=== PATIENT | male | born 1960 | race Caucasian/White ===

== ENCOUNTER 2024-02-03 13:05 | Day surgery (SDC) | payer OTHER, SELFPAY ==
--- NOTE | 2024-02-03 | PATH_ITS ---
[facility] Accession Number: [id number] No. of containers..01 Tissue . 01 Material submitted: . rectum - RECTAL POLYP . 01 Diagnosis: RECTAL POLYP: Hyperplastic polyp. [facility] 02/05/2024 1448 Local . 01 Electronically signed: . Sreedhar Cortés MD, Pathologist NPI- [id number] . 01 Gross description: . Received in formalin with two patient identifiers and rectal polyp, is a single fields soft tissue fragment 0.4 cm in greatest dimension. Submitted in cassette A1. ([id number]) /HILARIA 02/05/20248 Local . 01 Pathologist provided ICD-10: K63.5 . 01 CPT . 840828 Specimen Comment: A courtesy copy of this report has been sent to [phone] Performed at: [address] [facility] [id number] MD Sreedhar Cortés MD Phone: [phone]
[2024-02-03] MEDS: LACTATED RINGERS 1,000 ML 42 ML IV (13:40)
[2024-02-03 13:45] VITALS: BP 134/84; PULSE 73; RESP 18; TEMP 36.5; O2SAT 94
--- NOTE | 2024-02-03 14:13 | P.HP_ITS ---
History of Present Illness History of Present Illness Date Patient Seen: 02/03/24 Time Patient Seen: 14:13 Chief complaint: [facility] [place] Narrative: 63-year-old man here for screening colonoscopy. Personal history of colonic polyps. Family history of colon cancer in his mother. Last colonoscopy approximately 5 years ago. No abdominal concerns today. [facility] Social History Smoking Status: Never smoker alcohol intake: current Meds Home Medications and Allergies Home Medications Medication Instructions Recorded Confirmed Type aspirin 81 mg tablet 81 mg PO DAILY 02/03/24 02/03/24 History atorvastatin 40 mg tablet 40 mg PO DAILY 02/03/24 02/03/24 History Allergies Allergy/AdvReac Type Severity Reaction Status Date / Time No Known Drug Allergies Allergy Verified 02/03/24 13:43 Exam Vital Signs (past 8 hours): - 02/03/24 13:45 Temperature 97.7 F Pulse Rate 73 Respiratory Rate 18 Blood Pressure 134/84 Pulse Oximetry 94 Oxygen Delivery Method Room Air Oxygen Delivery Method Room Air Narrative Exam Narrative: General adult man alert oriented no acute distress Chest nonlabored respiration Extremities warm well perfused Assessment & Plan Assessment & Plan narrative: The patient requires colorectal screening and colonoscopy is recommended. Technical details were discussed. Risks, benefits, alternatives explained. Risks including but not limited to myocardial infarction, aspiration, bleeding, pain, missed lesion, incomplete examination, need for further radiographic studies, intestinal injury, and need for major abdominal surgery were discussed. All questions were answered to their satisfaction, and they are in agreement with this plan. Time-Based Coding :: [TOTAL MINUTES] spent with patient and on the chart (including review of chart, obtaining history, exam, reviewing outside data, placing orders, documenting exam and treatment plan, and counseling patient) on [DATE].
[2024-02-03 14:36] VITALS: BP 91/58; PULSE 69; RESP 14; TEMP 36.2; O2SAT 90
[2024-02-03 14:40] VITALS: BP 98/66; PULSE 67; RESP 10; O2SAT 95
--- NOTE | 2024-02-03 14:44 | P.OP.COLON_ITS ---
Operative Date/Time/Diagnoses Date of procedure: 02/03/24 Time of procedure: 14:44 Pre-op diagnosis: Family history of colon cancer Personal history of colonic polyps Post-op diagnosis: other (Colonic polyp x1) Procedure & Clinicians Study performed: Screening colonoscopy and polypectomy Same procedure as scheduled: Yes Indications: Family history of colon cancer Personal history of colonic polyps Colorectal screening Surgeon: Vin Lopez Procedure Notes Procedure in detail: The history and physical was performed/updated and the patient is ASA class is 2. The procedure was discussed in detail with the patient. Potential risks complications including infection, bleeding, missed diagnosis, perforation, need for surgery, and were explained. Their questions were answered and informed consent was obtained. Patient was brought to the procedure room and placed standard monitoring equipment. The patient's vital signs were monitored continuously throughout the entire procedure. Prior to starting time-out was performed. The patient was placed in the left lateral recumbent position. Procedural sedation was administered by anesthesia. Examination began with a thorough inspection of the perianal area there was no evidence of fissures, fistulae, external hemorrhoids or cutaneous malignancy. The colonoscopy scope was then placed into the anal canal and was advanced to the cecum, which was identified by the ileocecal valve, the appendiceal orifice and the confluence of the taenia. The scope was then slowly withdrawn examining colon thoroughly in all directions, irrigating it of any residual stool. The scope was retroflexed within the rectum The patient tolerated the procedure well. They will be discharged once criteria are met. The prep was of good/excellent quality. The withdrawl time was 6 minutes. FINDINGS * Rectal 3 mm polyp removed with biopsy forceps * Mild diverticulosis of descending colon Specimen(s): other (Rectal polyp) Impression: Colonic polyp x1 Post-procedure Recommendations: Colonoscopy in 5 years and High fiber diet Disposition: same day surgery
[2024-02-03 14:45] VITALS: PULSE 65; RESP 12; O2SAT 95
[2024-02-03 14:50] VITALS: BP 111/69; PULSE 68; RESP 16; O2SAT 96
[2024-02-03 14:56] VITALS: BP 113/73; PULSE 64; RESP 17; TEMP 36.4; O2SAT 93
== END 2024-02-03 15:20 | disposition home or self-care (01) ==
PROVIDERS: Referring Provider Surgery; Visit Provider Surgery
PROC: 0DJD8ZZ Inspection of Lower Intestinal Tract, Via Natural or Artificial Opening Endoscopic (ICD-10-PCS; CPT 45378; principal; 2024-02-03 14:30)
DX: Z12.11 Encounter for screening for malignant neoplasm of colon (principal); Z86.010 Personal history of colon polyps; Z80.0 Family history of malignant neoplasm of digestive organs; K57.30 Diverticulosis of large intestine without perforation or abscess without bleeding; K63.5 Polyp of colon
CPT/HCPCS: 45380; J2704